=== PATIENT | female | born 2000 | race Caucasian/White ===

== ENCOUNTER → 2019-01-01 12:28 | Outpatient (CLI) | payer BC, SELFPAY ==
--- NOTE | 2019-01-01 12:34 | STE_ITS ---
Reason For Study: Syncope Stress Results Protocol: Kannan Protocol Maximum Predicted HR: 201 bpm Target HR: 171 bpm % Maximum Predicted HR: 90 % Heart Stage Duration Rate BP Comment (mm:ss) (bpm) Baseline 74 108/64No Chest Pain; Denies Dizziness [facility]an Protocol Stage I 3:00 96 112/70No Chest Pain; Denies Dizziness or Lightheadedness [facility]annan Protocol Stage II 3:00 118 118/60No Chest Pain; Denies Dizziness or Lightheadedness [facility]annan Protocol Stage III 3:00 134 130/64No Chest Pain; Denies Dizziness or Lightheadedness [facility]annan Protocol Stage IV 3:00 169 140/64No Chest Pain; Denies Dizziness or Lightheadedness Kannan Protocol Stage No Chest Pain; Mild Dyspnea; Denies Dizziness or V 3:00 181 150/62Lightheadedness Recovery 96 112/52No Chest Pain; Denies Dizziness Stress Duration: 15:00 mm:ss Maximum Stress HR: 181 bpm METS: 17 Baseline Echocardiogram Findings Stress Echo Wall motion Data Resting WM Intermediate WM Stress WM Resting Wall Motion Wall Motion Stress No regional wall motion No regional wall motion abnormalities noted. abnormalities noted. Ejection Fraction 60 %. Ejection Fraction 70 %. Interpretation Summary Exercise stress echo. 18-year-old lady with a history of syncope. Resting EKG demonstrates normal sinus rhythm with a rate of 72 bpm normal intervals noted resting blood pressures 108/64 mmHg. The patient exercised according to regular Kannan protocol for a total duration of 15 minutes. The maximum heart rate was 181 bpm which was 90% of maximum corrected heart rate and maximum workload was 17.2 metabolic equivalents. At rest with no ST or T wave changes noted to suggest ischemia peak exercise upsloping ST changes and it was noted with no meet the criteria for ischemia. No clinical angina was noted. The resting blood pressure was 108/64 with a peak blood pressure 150/62 mmHg. Conclusion: Exercise stress test with no EKG criteria for ischemia at a high workload. No arrhythmias noted. Excellent functional aerobic capacity. Ordering Physician: Maricruz Muñoz Referring Physician: Tejas Botello Performed By: Barb Catalan RDCS
== END ==
PROVIDERS: Family Provider Pediatrics; PCP Pediatrics
DX: R55 Syncope and collapse (principal); R06.00 Dyspnea, unspecified
CPT/HCPCS: 93017; 93350

== ENCOUNTER 2020-01-29 10:11 | Emergency (ER) | payer BC, SELFPAY ==
[2020-01-29 10:13] VITALS: BP 125/82; PULSE 84; RESP 16; TEMP 36.4; O2SAT 97; BMI 24.5
--- NOTE | 2020-01-29 10:19 | ED.VIS.GEN ---
History of Present Illness Chief Complaint: Abd Pain Informant: Patient Narrative: 19-year-old female presents with vague crampy abdominal pain. She states it was in the upper abdomen and now it is in the mid abdomen. She states she has not been constipated. She has not had nausea, vomiting, diarrhea. She went to the urgent care and was evaluated and they sent her to the emergency room to be evaluated. She states that her pain is very minor she went to the urgent care. She states that she does not think she is because she has not had penetrative sex before. Past Medical History - Allergies and Home Meds Allergies/Adverse Reactions: Allergies No Known Allergies Allergy (Verified 01/29/20 10:12) Primary Care Physician: Edith Smith MD [Primary Care Provider] - Prior records reviewed: Yes Smoking Status: Never smoker Alcohol: None Drugs: None Review of Systems General: Denies: Chills, Fever, Sweats Eyes: Denies: Visual changes - bilaterally, Diplopia ENT: Denies: Rhinorrhea, Sore throat Cardiovascular: Denies: Chest pain, Palpitations Respiratory: Denies: Dyspnea, Cough, Dyspnea on exertion Gastrointestinal: Reports: Abdominal pain. Denies: Nausea, Vomiting, Diarrhea, Melena, Hematochezia Genitourinary: Denies: Dysuria, Hematuria, Frequency Musculoskeletal: Denies: Back pain, Extremity Pain Skin: Denies: Rash, Wounds Neurological: Denies: Headache, Weakness, Numbness Physical Exam Vital Signs/Narrative: Vital Signs Temp Pulse Resp BP Pulse Ox 01/29/20 10:13 97.6 F L 84 16 125/82 H 97 General: Well nourished, Well developed, No Acute Distress Head: Normocephalic, Atraumatic Eyes: Perrl, EOMI ENT: Moist mucous membranes, No rhinorrhea Neck: Supple, Nontender Cardiovascular: Regular rate, Regular rhythm Respiratory: No distress Abdomen: Soft, Nondistended, Normal bowel sounds, Tender - Very mild tenderness to palpation superior to the umbilicus. Abdomen is non-peritoneal. Negative Avila sign. Negative McBurney point tenderness. Back: Nontender, Normal Inspection Extremities: Nontender, No edema Skin: Normal color, No rash Neurological: Alert, Oriented x3 Psychological: Normal affect, Normal Mood Diagnostic/Tx/Re-eval Laboratory Data 01/29/20 01/29/20 01/29/20 10:39 10:39 10:40 WBC 9.3 RBC 5.08 Hgb 14.9 Hct 43.7 MCV 86.0 MCH 29.3 MCHC 34.1 RDW Std Deviation 38.5 RDW Coeff of Julio César 12.4 Plt Count 270 MPV 9.1 Immature Gran % (Auto) 0.200 Neut % (Auto) 70.5 H Lymph % (Auto) 23.7 [place] % (Auto) 5.2 Eos % (Auto) 0.2 Baso % (Auto) 0.2 Absolute Neuts (auto) 6.6 Absolute Lymphs (auto) 2.21 Nucleated RBC % 0 Sodium 140 Potassium 3.9 Chloride 107 Carbon Dioxide 27.0 Anion Gap 6 BUN 11 Creatinine 0.80 Estim Creat Clear Calc 84.65 Est GFR (MDRD) Af Amer 117 Est GFR (MDRD) Non-Af 97 BUN/Creatinine Ratio 13.8 Glucose 86 Calcium 9.5 Total Bilirubin 0.80 AST 23 ALT 21 Alkaline Phosphatase 131 H Total Protein 8.5 H Albumin 4.4 Globulin 4.1 Albumin/Globulin Ratio 1.1 Lipase 95 Urine Color Urine Clarity Urine pH Ur Specific [place] Urine Protein Urine Glucose (UA) Urine Ketones Urine Occult Blood Urine Nitrite Urine Bilirubin Urine Urobilinogen Ur Leukocyte Esterase Urine Test Negative 01/29/20 10:40 WBC RBC Hgb Hct MCV MCH MCHC RDW Std Deviation RDW Coeff of Julio César Plt Count MPV Immature Gran % (Auto) Neut % (Auto) Lymph % (Auto) [place] % (Auto) Eos % (Auto) Baso % (Auto) Absolute Neuts (auto) Absolute Lymphs (auto) Nucleated RBC % Sodium Potassium Chloride Carbon Dioxide Anion Gap BUN Creatinine Estim Creat Clear Calc Est GFR (MDRD) Af Amer Est GFR (MDRD) Non-Af BUN/Creatinine Ratio Glucose Calcium Total Bilirubin AST ALT Alkaline Phosphatase Total Protein Albumin Globulin Albumin/Globulin Ratio Lipase Urine Color Yellow Urine Clarity Clear Urine pH 7.0 Ur Specific [place] 1.010 Urine Protein 30 H Urine Glucose (UA) Normal Urine Ketones Negative Urine Occult Blood Negative Urine Nitrite Negative Urine Bilirubin Negative Urine Urobilinogen Normal Ur Leukocyte Esterase Negative Urine Test - Medical Decision Making Patient presents for evaluation of a vague/mild abdominal pain which she initially went to urgent care for. She states is been going on for a couple of days. She has no other signs or symptoms that she is concerned about except for possible , however she said she has not had penetrating sexual intercourse. CT is negative. Urinalysis negative. Blood work is normal with exception of slight elevation of her alk phos. Her physical exam is benign. I spoke with her and her mother about refraining from CT imaging at this time vitals and normal lab work. They were given return precautions if she had new or worsening symptoms. They were amenable to this. Patient stable for discharge. Impression: 1. Abdominal pain 2. Mildly elevated alk phos ED Disposition - Plan for ED Patient: Disposition: Home or Assisted Living Instructions: ED Abdominal Pain Unkn Cause Fem Referrals: Edith Smith MD [Primary Care Provider] -
[2020-01-29 10:29] VITALS: BP 100/66; PULSE 67; RESP 18; O2SAT 100
[2020-01-29 10:50] LABS: Absolute Lymphocyte Count 2.21 X10^3/uL (0.83-4.51); Absolute Neutrophil Count 6.6 X10^3/uL (2.0-7.7); Basophil# 0.02 X10^3/uL; Basophil% 0.2 % (0-1); Eosinophil# 0.02 X10^3/uL; Eosinophils% 0.2 % (0-5); Hematocrit 43.7 % (37-47); Hemoglobin 14.9 g/dL (12.0-15.0); Lymphocyte # 2.21 X10^3/ul (4.0); Lymphocyte % 23.7 % (19-41); Mean Corp Hgb Conc 34.1 g/dL (32-36); Mean Corpuscular Hgb 29.3 pg (27.0-32.0); Mean Platelet Vol. 9.1 fl (6.2-12.0); Monocyte# 0.48 X10^3/uL; Monocyte% 5.2 % (0-10); NRBC Flagged by Analyzer 0 % (0-5); Neutrophil # 6.56 X10^3/uL (2.7-7.7); Neutrophil % 70.5 % (47-70); Platelet Count 270 K/mm3 (150-450); RBC Distribution Width CV 12.4 % (11.6-14.6); RBC Distribution Width SD 38.5 fl (35.1-43.9); Red Blood Count 5.08 M/mm3 (4.2-5.4); White Blood Count 9.3 K/mm3 (4.4-11.0)
[2020-01-29 11:01] LABS: Color, Urine Yellow (Yellow); Glucose, Dipstick Normal (Normal); Ketone-Dipstick Negative (Negative); Leukocyte Esterase-Dipstick Negative /ul (Negative); Nitrite-Dipstick Negative (Negative); Occult Blood-Urine Negative /ul (Negative); Protein-Dipstick 30 mg/dl (Negative); Urine Bilirubin Dipstick Negative (Negative); Urine Clarity Clear (Clear); Urine Urobilinogen Normal (Normal)
[2020-01-29 11:04] LABS: ALB/GLOB Ratio 1.1 RATIO (0.9-2.4); AST(SGOT) 23 U/L (15-37); Alanine Aminotransfer ALT/SGPT 21 U/L (13-56); Albumin, Serum 4.4 g/dL (3.2-5.0); Alkaline Phosphatase 131 U/L (45-117); Anion Gap 6 (5-15); BUN 11 mg/dL (7-18); BUN/Creat Ratio 13.8 RATIO (10-20); Calcium,Total 9.5 mg/dL (8.5-10.1); Chloride 107 mmol/L (98-107); EST Glomerular Filtration Rate 97 mL/min (>60); Est Glom Filt Rate - Afr Amer 117 mL/min (>60); Estimated Creatinine Clearance 84.65 ml/min; Globulin 4.1 g/dL (2.2-4.2); Glucose 86 mg/dL (74-106); Lipase 95 U/L (73-393); Potassium 3.9 mmol/L (3.5-5.1); Protein, Total 8.5 g/dL (6.4-8.2); Sodium Level 140 mmol/L (136-145)
[2020-01-29 11:09] LABS: Internal QC Validated? YES +Cl - CLEAR BKGD; Pregnancy, Urine Negative Negative
[2020-01-29 11:32] VITALS: BP 107/78; PULSE 71; RESP 16; O2SAT 98
== END 2020-01-29 11:34 | disposition home or self-care (01) ==
PROVIDERS: Emergency Provider Student in an Organized Health Care Education/Training Program; PCP Pediatrics
DX: R10.9 Unspecified abdominal pain (principal); R74.8 Abnormal levels of other serum enzymes
CPT/HCPCS: 80053; 81002; 81025; 83690; 85025; 99284; A4216

== ENCOUNTER 2022-01-05 17:08 | Emergency (ER) | payer BC, SELFPAY ==
[2022-01-05 17:09] VITALS: BP 112/69; PULSE 75; RESP 16; TEMP 35.7; O2SAT 98; BMI 26.0
[2022-01-05 19:15] VITALS: PULSE 84; RESP 15; O2SAT 100; O2SAT 99
--- NOTE | 2022-01-05 19:52 | ED.VIS.DYS ---
HPI History of Present Illness Chief Complaint: Shortness of Breath Narrative Narrative: This is a 22-year-old female who is otherwise healthy presenting with some chest pressure and dyspnea which has been having 1 for the last few weeks. Patient states that she did have COVID-19 about a month and a half ago. She states it was uneventful and she recovered well. She recently traveled to [place]. She states that when she came back showed up an appointment for her primary care physician so that she could make sure he does have asthma or something. She reports that she ran between 8 miles the day before yesterday and 5 miles yesterday. She does report that she had to stop a little bit more. She states usually she is a distance runner. States when she runs too far sometimes she gets some chest pressure and has to stop and catch her breath. No fever, chills, cough. Patient is not anticoagulated. She is a non-smoker. No history of DVT/PE. No recent surgery, history of cancer, oral control. No calf pain or swelling. No history of cardiac disease. PFSH PFSH Home Medications NK 01/29/20 [History Last Taken Unknown] Allergy/AdvReac Type Severity Reaction Status Date / Time No Known Allergies Allergy Verified 01/05/22 17:12 Social History Smoking Status: Never smoker ROS ROS ED Constitutional Constitutional ED: Denies chills or fever(s) Eyes Eyes: Denies change in vision ENT ENT ED: Denies rhinorrhea or sore throat Cardiovascular Cardiovascular: Reports chest pain Respiratory/Chest Respiratory/Chest: Reports dyspnea; Denies cough Gastrointestinal Gastrointestinal: Denies abdominal pain or constipation Genitourinary Genitourinary ED: Denies dysuria or hematuria Musculoskeletal Musculoskeletal: Denies arthralgias or back pain Integumentary Denies abscess Neurologic Neurologic: Denies headache(s) or paresthesias Psychiatric Psychiatric: Denies anxiety or depression EXAM Physical Exam Const Vital Signs: 01/05/22 17:09 01/05/22 19:15 01/05/22 19:15 Temperature 96.2 F L Temperature Source Temporal Pulse Rate 75 84 Respiratory Rate 16 15 Respiratory Effort Normal Non-Labored Respiratory Depth Normal Respiratory Pattern Normal Blood Pressure 112/69 Blood Pressure Mean 83 Pulse Ox 98 99 Oxygen Delivery Method Room Air Room Air Positive well nourished General Appearance ED: NAD; Negative for pallor HEENT Reports moist mucous membranes Eyes PERRL and EOMs intact bilaterally Neck no lymphadenopathy Resp normal respiratory effort and clear to auscultation bilaterally Cardio regular rate and regular rhythm GI non-tender Neuro oriented x3 and CN's II-XII intact bilaterally Sensorium / Orientation: alert Speech: speech normal Motor Exam: strength 5/5 throughout Psych mental status grossly normal Mood & Affect: Negative for anxious or tearful Skin no wounds General Skin Exam: Negative for jaundice or pallor MDM MDM MDM Narrative Medical decision making narrative: Patient presented with chest heaviness and shortness of breath which she is really experiencing after she runs several miles. She is not on control and has not been for a month and a half. States she did have COVID recently and recovered uneventfully. No history of cardiac disease. Is not a smoker and is otherwise healthy. Her lungs are clear to auscultation. Heart is regular rate and rhythm. No murmurs. I have a low suspicion for ACS given her age and the fact that she is healthy and running 13 miles in the last 2 days. I also do not believe she has a PE based on the fact that she has had heaviness after running several miles and its not sharp pleuritic pain. She has no calf pain or swelling. Technically she is PERC negative. I counseled she and her mother of this. I did cosmetic counselor them that I have low suspicion for ACS and PE but I did offer to do any lab work or imaging. After long discussion through shared decision making we determined that she would go home and follow-up with her primary care provider. Patient was given return precautions. Impression: 1. Chest pain 2. Dyspnea Discharge Plan Triage Chief Complaint: Shortness of Breath ED Provider: Logan Greer Dx/Rx/DC Orders Instructions: ED Chest Pain, Noncardiac, ED Dyspnea Prescriptions: No Action NK Primary Care Provider: Maura Quiroz NP Referrals: Maura Quiroz NP, [employer] [Primary Care Provider] - Disposition Disposition: Home, Self Care Discharge Date/Time: 01/05/22 19:17
== END 2022-01-05 19:17 | disposition home or self-care (01) ==
PROVIDERS: Emergency Provider Student in an Organized Health Care Education/Training Program; PCP Registered Nurse; Visit Provider Student in an Organized Health Care Education/Training Program
DX: R06.02 Shortness of breath (principal); R07.9 Chest pain, unspecified; Z86.16 Personal history of COVID-19
CPT/HCPCS: 99282

== ENCOUNTER → 2022-01-06 | Outpatient (CLI) | payer BC, SELFPAY ==
[2022-01-06 10:35] LABS: D-Dimer Quantitative (DVT/PE) 0.46 FEU/ug/m (0.27-0.49)
== END | disposition home or self-care (01) ==
LOC: LABSPEC 10:15
PROVIDERS: PCP Registered Nurse; Visit Provider Registered Nurse
DX: R06.02 Shortness of breath (principal); R07.89 Other chest pain
CPT/HCPCS: 85379